=== PATIENT | male | born 1950 | race Caucasian/White ===

== ENCOUNTER → 2021-01-18 | Outpatient (CLI) | payer MEDICARE ==
[~2021-01-18] MED LIST: EUTHYROX25 MCG PO; FLONASE0.05 MG/AC INH; KLOR-CON M2020 MEQ PO; LASIX20 MG PO; LEXAPRO20 MG PO; LISINOPRIL10 MG PO; LISINOPRIL2.5 MG PO; QVAR0.08 MG/AC INH; TENORMIN50 MG PO; VENTOLIN0.09 MG/AC; ZANTAC150 MG PO; ZITHROMAX250 MG PO
== END | disposition home or self-care (01) ==
LOC: ORTHO 00:19
PROVIDERS: ATTEND Orthopaedic Surgery
DX: M16.11 Unilateral primary osteoarthritis, right hip (principal)

== ENCOUNTER → 2021-02-01 | Outpatient (CLI) | payer MEDICARE | END | disposition home or self-care (01) | LOC: CARD 01:16 | PROVIDERS: ATTEND Physician Assistant | DX: R94.31 Abnormal electrocardiogram [ECG] [EKG] (principal) ==

== ENCOUNTER 2021-03-30 00:22 | Inpatient (IN) | payer MEDICARE ==
[2021-03-26 14:35] LABS: BILIRUBIN Negative (Negative); BLOOD 1+ (Negative); CLARITY Clear (Clear); COLOR Yellow (Yellow); GLUCOSE Negative (Negative); KETONE Negative (Negative); LEUKO ESTERASE Negative (Negative); NITRITE Negative (Negative); UROBILINOGEN 0.2 E.U./dl (0.0-1.0)
[2021-03-26 14:47] LABS: ALBUMIN 3.8 gm/dl (3.1-4.5); CREATININE 1.57 mg/dL (0.70-1.30); POTASSIUM 4.6 mmol/L (3.5-5.1); TOTAL PROTEIN 8.2 gm/dL (6.4-8.2)
[2021-03-26 14:55] LABS: BACTERIA 3+; EPITHELIAL CELLS 0-2
[~2021-03-30] VITALS: Ht 167.6 cm; Wt 125.6 kg
[2021-03-30] VITALS (10 sets, daily range): BP systolic 94–154; BP diastolic 40–67
[~2021-03-30 00:22] MED LIST changes: +ASPIRIN81 M1 PO
[2021-03-31] VITALS: BP 109/45
[2021-03-31] MEDS ORDERED: SIMVASTATIN40 MG PO (02:11)
[2021-03-31 06:33] LABS: BASO % 0.2 % (0.0-1.0); HEMATOCRIT 31.7 % (42.0-52.0); LYMPH # 0.7 10*3/uL (1.3-4.4); LYMPH % 6.3 % (27.0-41.0); MEAN CELL VOLUME 90.8 fl (80.0-94.0); MEAN CORPUSCULAR HGB 29.8 pg (27.0-31.0); MEAN CORPUSCULAR HGB CONC 32.8 g/dl (33.0-37.0); MEAN PLATELET VOLUME 9.7 fl (9.6-12.3); MONO # 1.2 10*3/uL (0.1-1.0); MONO % 10.6 % (3.0-9.0); NEUT # 9.1 10*3/uL (2.3-7.9); NEUT % 82.4 % (47.0-73.0); PLATELET COUNT AUTOMATED 202 10*3/uL (130-400); RED BLOOD COUNT 3.49 10*6/uL (4.50-5.90); RED CELL DISTRI WIDTH 12.4 % (0-14.5); WHITE BLOOD COUNT 11.1 10*3/uL (4.8-10.8)
[2021-03-31 06:39] LABS: POTASSIUM 4.3 mmol/L (3.5-5.1)
[2021-03-31 06:49] LABS: CREATININE 1.58 mg/dL (0.70-1.30)
[2021-03-31 08:04] VITALS: BP 110/62
[2021-03-31 16:00] VITALS: BP 122/48
[2021-04-01] VITALS: BP 116/49
[2021-04-01 07:45] LABS: CREATININE 1.74 mg/dL (0.70-1.30); POTASSIUM 4.2 mmol/L (3.5-5.1)
[2021-04-01 08:00] VITALS: BP 124/46
[2021-04-01 08:25] LABS: BASO % 0.3 % (0.0-1.0); EOS % 0.1 % (1.0-4.0); HEMATOCRIT 30.6 % (42.0-52.0); LYMPH # 0.7 10*3/uL (1.3-4.4); LYMPH % 6.8 % (27.0-41.0); MEAN CORPUSCULAR HGB 30.1 pg (27.0-31.0); MEAN CORPUSCULAR HGB CONC 32.4 g/dl (33.0-37.0); MONO # 1.1 10*3/uL (0.1-1.0); MONO % 10.5 % (3.0-9.0); NEUT # 8.7 10*3/uL (2.3-7.9); NEUT % 81.8 % (47.0-73.0); PLATELET COUNT AUTOMATED 165 10*3/uL (130-400); RED BLOOD COUNT 3.29 10*6/uL (4.50-5.90); RED CELL DISTRI WIDTH 12.4 % (0-14.5); WHITE BLOOD COUNT 10.6 10*3/uL (4.8-10.8)
[2021-04-01 11:47] LABS: FREE T4 1.14 ng/dl (0.76-1.46)
[2021-04-01 11:51] LABS: THYROID STIM HORMONE (HS) 2.02 uIU/ml (0.358-4.75)
[2021-04-01 12:00] VITALS: BP 122/52
[2021-04-01 16:00] VITALS: BP 130/49
[2021-04-01 20:00] VITALS: BP 124/51
[2021-04-02 07:05] LABS: BASO % 0.3 % (0.0-1.0); EOS # 0.1 10*3/uL (0.0-0.4); EOS % 0.7 % (1.0-4.0); HEMATOCRIT 29.7 % (42.0-52.0); LYMPH # 0.4 10*3/uL (1.3-4.4); LYMPH % 4.9 % (27.0-41.0); MEAN CELL VOLUME 93.4 fl (80.0-94.0); MEAN CORPUSCULAR HGB 29.6 pg (27.0-31.0); MEAN CORPUSCULAR HGB CONC 31.6 g/dl (33.0-37.0); MEAN PLATELET VOLUME 9.9 fl (9.6-12.3); MONO # 0.7 10*3/uL (0.1-1.0); MONO % 7.9 % (3.0-9.0); NEUT # 7.7 10*3/uL (2.3-7.9); NEUT % 85.6 % (47.0-73.0); PLATELET COUNT AUTOMATED 163 10*3/uL (130-400); RED BLOOD COUNT 3.18 10*6/uL (4.50-5.90); RED CELL DISTRI WIDTH 12.4 % (0-14.5)
[2021-04-02 07:21] LABS: POTASSIUM 4.3 mmol/L (3.5-5.1)
[2021-04-02 07:28] LABS: CREATININE 1.58 mg/dL (0.70-1.30)
[2021-04-02 08:00] VITALS: BP 127/55
[2021-04-02 12:00] VITALS: BP 133/57
[2021-04-02 16:00] VITALS: BP 130/61
[2021-04-02 20:00] VITALS: BP 142/60
[2021-04-03 08:00] VITALS: BP 111/91
[2021-04-03 14:34] LABS: BILIRUBIN Negative (Negative); BLOOD Negative (Negative); CLARITY Clear (Clear); COLOR Yellow (Yellow); GLUCOSE Negative (Negative); KETONE Negative (Negative); LEUKO ESTERASE Negative (Negative); NITRITE Negative (Negative); PH 5.5 (4.5-8.0); SPECIFIC GRAVITY 1.025 (1.001-1.030)
[2021-04-03 14:47] LABS: EPITHELIAL CELLS 0-2; RBC 0-2 rbc/hpf (0-2)
[2021-04-03 14:48] LABS: BACTERIA TRACE; MUCOUS TRACE
[2021-04-03 16:00] VITALS: BP 127/51
[2021-04-03 20:00] VITALS: BP 127/43
[2021-04-04] VITALS: BP 127/46
[2021-04-04 06:40] LABS: BASO % 0.5 % (0.0-1.0); EOS # 0.5 10*3/uL (0.0-0.4); HEMATOCRIT 27.9 % (42.0-52.0); LYMPH # 0.5 10*3/uL (1.3-4.4); MEAN CELL VOLUME 91.2 fl (80.0-94.0); MEAN CORPUSCULAR HGB 29.7 pg (27.0-31.0); MEAN CORPUSCULAR HGB CONC 32.6 g/dl (33.0-37.0); MEAN PLATELET VOLUME 9.6 fl (9.6-12.3); MONO # 0.6 10*3/uL (0.1-1.0); MONO % 7.5 % (3.0-9.0); NEUT # 6.2 10*3/uL (2.3-7.9); NEUT % 79.5 % (47.0-73.0); PLATELET COUNT AUTOMATED 223 10*3/uL (130-400); RED BLOOD COUNT 3.06 10*6/uL (4.50-5.90); RED CELL DISTRI WIDTH 12.2 % (0-14.5); WHITE BLOOD COUNT 7.7 10*3/uL (4.8-10.8)
[2021-04-04 06:55] LABS: BUN 20 mg/dl (7-24); CHLORIDE 110 mmol/L (98-107); CREATININE 1.34 mg/dL (0.70-1.30); POTASSIUM 3.9 mmol/L (3.5-5.1); SODIUM 136 mmol/L (136-145)
[2021-04-04 08:00] VITALS: BP 116/47
[2021-04-04 12:00] VITALS: BP 130/55
[2021-04-04] MEDS ORDERED: HYDROCODONE-AC1 EAC1 PO (12:07)
[2021-04-04] MEDS ORDERED: VITAMIN D350 MC2 PO (12:07)
== END 2021-04-04 14:30 | DRG 469 ==
LOC: SDC 00:22 → 5E 11:11 → SDC 13:15 → 5E 04-04 14:30
PROVIDERS: Family Medicine; Internal Medicine; Orthopaedic Surgery; Student in an Organized Health Care Education/Training Program; ADMIT Internal Medicine; ATTEND Internal Medicine
PROC: 0SR901Z Replacement of Right Hip Joint with Metal Synthetic Substitute, Open Approach (ICD-10-PCS; principal; 2021-03-30)
PROC: 3E0T3BZ Introduction of Anesthetic Agent into Peripheral Nerves and Plexi, Percutaneous Approach (ICD-10-PCS; 2021-03-30)
DX: M16.11 Unilateral primary osteoarthritis, right hip (principal); N17.0 Acute kidney failure with tubular necrosis; N39.0 Urinary tract infection, site not specified; E78.5 Hyperlipidemia, unspecified; E03.9 Hypothyroidism, unspecified; I10 Essential (primary) hypertension; E83.39 Other disorders of phosphorus metabolism; G89.18 Other acute postprocedural pain; D64.9 Anemia, unspecified; R73.9 Hyperglycemia, unspecified; E87.8 Other disorders of electrolyte and fluid balance, not elsewhere classified; Z88.1 Allergy status to other antibiotic agents; Z88.8 Allergy status to other drugs, medicaments and biological substances; Z79.899 Other long term (current) drug therapy

== ENCOUNTER → 2021-04-16 | Outpatient (CLI) | payer MEDICARE ==
[~2021-04-16] MED LIST changes: +HYDROCODONE-AC1 EAC1 PO; +SIMVASTATIN40 MG PO; +VITAMIN D350 MC2 PO
== END | disposition home or self-care (01) ==
LOC: ORTHO 00:42
PROVIDERS: ATTEND Orthopaedic Surgery
DX: M16.11 Unilateral primary osteoarthritis, right hip (principal)

== ENCOUNTER → 2021-05-14 | Outpatient (CLI) | payer MEDICARE | END | disposition home or self-care (01) | LOC: ORTHO 00:19 | PROVIDERS: ATTEND Orthopaedic Surgery | DX: Z47.1 Aftercare following joint replacement surgery (principal); Z96.641 Presence of right artificial hip joint ==

== ENCOUNTER → 2021-06-28 | Outpatient (CLI) | payer MEDICARE | END | disposition home or self-care (01) | LOC: ORTHO 00:16 | PROVIDERS: ATTEND Orthopaedic Surgery | DX: I70.201 Unspecified atherosclerosis of native arteries of extremities, right leg (principal); Z96.641 Presence of right artificial hip joint; M46.1 Sacroiliitis, not elsewhere classified; R53.83 Other fatigue ==

== ENCOUNTER → 2021-09-27 | Outpatient (CLI) | payer MEDICARE | END | disposition home or self-care (01) | LOC: ORTHO 05:12 | PROVIDERS: ATTEND Orthopaedic Surgery | DX: Z47.1 Aftercare following joint replacement surgery (principal); M25.851 Other specified joint disorders, right hip; Z96.641 Presence of right artificial hip joint ==

== ENCOUNTER → 2022-01-10 | Outpatient (CLI) | payer MEDICARE | END | disposition home or self-care (01) | LOC: RAD 14:46 | PROVIDERS: ATTEND Physician Assistant | DX: R31.9 Hematuria, unspecified (principal); R10.30 Lower abdominal pain, unspecified; M16.12 Unilateral primary osteoarthritis, left hip; Z96.641 Presence of right artificial hip joint ==

== ENCOUNTER → 2022-03-28 | Outpatient (CLI) | payer MEDICARE | END | disposition home or self-care (01) | LOC: ORTHO 00:18 | PROVIDERS: ATTEND Orthopaedic Surgery | DX: M16.12 Unilateral primary osteoarthritis, left hip (principal); I70.0 Atherosclerosis of aorta; M25.752 Osteophyte, left hip; Z96.41 Presence of insulin pump (external) (internal) ==

== ENCOUNTER 2022-05-13 14:11 | Emergency (ER) | payer MEDICARE ==
[~2022-05-13] VITALS: Ht 177.8 cm; Wt 130.6 kg
[2022-05-13 15:13] LABS: ALKALINE PHOSPHATASE 66 U/L (46-116); BUN 23 mg/dl (9-23); CHLORIDE 99 mmol/L (98-107); LIPASE 24 U/L (12-53); POTASSIUM 3.1 mmol/L (3.4-5.1); SGPT/ALT 15 U/L (10-49); TOTAL PROTEIN 7.4 gm/dL (6.0-8.0)
[2022-05-13 15:55] LABS: BASO % 0.1 % (0.0-1.0); LYMPH # 0.6 10*3/uL (1.3-4.4); LYMPH % 3.8 % (27.0-41.0); MEAN CELL VOLUME 91.9 fl (80.0-94.0); MEAN CORPUSCULAR HGB 30.5 pg (27.0-31.0); MEAN CORPUSCULAR HGB CONC 33.2 g/dl (33.0-37.0); MONO % 6.3 % (3.0-9.0); NEUT # 14.2 10*3/uL (2.3-7.9); NEUT % 89.4 % (47.0-73.0); RED BLOOD COUNT 4.46 10*6/uL (4.50-5.90); RED CELL DISTRI WIDTH 12.9 % (0-14.5); WHITE BLOOD COUNT 15.9 10*3/uL (4.8-10.8)
[2022-05-13 15:57] LABS: PLATELET COUNT AUTOMATED 244 10*3/uL (130-400)
[2022-05-13 16:02] LABS: ACT PARTIAL THROMBO TIME 27.3 SECONDS (20.0-32.1)
[2022-05-13 17:22] LABS: BILIRUBIN Negative (Negative); BLOOD 2+ (Negative); CLARITY Clear (Clear); COLOR Yellow (Yellow); GLUCOSE 1+ (Negative); KETONE 2+ (Negative); LEUKO ESTERASE Negative (Negative); NITRITE Negative (Negative); PH 5.5 (4.5-8.0); SPECIFIC GRAVITY >= 1.030 (1.001-1.030); UROBILINOGEN 0.2 E.U./dl (0.0-1.0)
[2022-05-13 17:53] LABS: WBC 0-2 wbc/hpf (0-5)
== END 2022-05-14 00:53 | disposition short-term general hospital (02) ==
LOC: ED 14:11
PROVIDERS: Emergency Medicine
DX: K56.609 Unspecified intestinal obstruction, unspecified as to partial versus complete obstruction (principal); R79.82 Elevated C-reactive protein (CRP); E87.6 Hypokalemia; D72.829 Elevated white blood cell count, unspecified; E44.1 Mild protein-calorie malnutrition; I10 Essential (primary) hypertension; Z87.442 Personal history of urinary calculi; J44.9 Chronic obstructive pulmonary disease, unspecified; Z88.1 Allergy status to other antibiotic agents; Z88.8 Allergy status to other drugs, medicaments and biological substances; Z98.890 Other specified postprocedural states; Z68.41 Body mass index [BMI] 40.0-44.9, adult

== ENCOUNTER → 2022-05-25 | Outpatient (CLI) | payer MEDICARE | END | disposition home or self-care (01) | LOC: ORTHO 00:35 | PROVIDERS: ATTEND Orthopaedic Surgery | DX: Z47.1 Aftercare following joint replacement surgery (principal); Z96.642 Presence of left artificial hip joint ==

== ENCOUNTER → 2022-06-22 | Outpatient (CLI) | payer MEDICARE | END | disposition home or self-care (01) | LOC: ORTHO 12:28 | PROVIDERS: ATTEND Orthopaedic Surgery | DX: Z47.1 Aftercare following joint replacement surgery (principal) ==

== ENCOUNTER → 2022-08-03 | Outpatient (CLI) | payer MEDICARE | END | disposition home or self-care (01) | LOC: ORTHO 01:11 | PROVIDERS: ATTEND Orthopaedic Surgery | DX: Z47.1 Aftercare following joint replacement surgery (principal) ==

== ENCOUNTER → 2022-11-04 | Outpatient (CLI) | payer MEDICARE | END | disposition home or self-care (01) | LOC: RAD 01:13 | PROVIDERS: ATTEND Orthopaedic Surgery | DX: Z96.642 Presence of left artificial hip joint (principal) ==

== ENCOUNTER → 2023-05-15 | Outpatient (CLI) | payer MEDICARE | END | disposition home or self-care (01) | LOC: ORTHO 02:25 | PROVIDERS: ATTEND Orthopaedic Surgery | DX: Z96.641 Presence of right artificial hip joint (principal); Z96.642 Presence of left artificial hip joint ==

== ENCOUNTER → 2024-05-15 | Outpatient (CLI) | payer MEDICARE | END | disposition home or self-care (01) | LOC: ORTHO 02:16 | PROVIDERS: ATTEND Orthopaedic Surgery | DX: Z47.1 Aftercare following joint replacement surgery (principal); Z96.641 Presence of right artificial hip joint; Z96.642 Presence of left artificial hip joint ==